=== PATIENT | male | born 1985 | race Caucasian/White ===

== ENCOUNTER 2020-07-29 14:00 | Inpatient (IN) | payer MEDICARE, OTHER ==
[~2020-07-29] VITALS: Ht 188 cm; Wt 81.4 kg
[~2020-07-29 14:00] MED LIST: BENZ2TAB10 PO; MULT-29 PO; OLAN5TAB40 PO
[2020-07-29 16:10] LABS: COVID AG,FIA SOURCE NASOPHARYNGEAL
[2020-07-29 18:07] VITALS: BP 106/61
[2020-07-29] MEDS ORDERED: OLANZapine 5 MG RAPDIS TABLET PO PRN (18:30)
[2020-07-29] MEDS: OLANZapine 10 MG TABLET PO SCH (20:52)
[2020-07-29] MEDS: ZOLPIDEM TARTRATE 10 MG TABLET PO PRN (21:02)
[2020-07-29] MEDS: LORazepam 2 MG TABLET PO PRN (21:03)
[2020-07-29 21:09] VITALS: BP 127/83
[2020-07-30 00:51] VITALS: BP 108/72
[2020-07-30] MEDS: LORazepam 2 MG TABLET PO PRN ×3 (07:13→20:47)
[2020-07-30] MEDS ORDERED: ONDANSETRON HCL 4 MG TABLET PO PRN (07:15)
[2020-07-30] MEDS ORDERED: PETROLATUM,WHITE 28 GM JELLY TP PRN (07:15)
[2020-07-30] MEDS ORDERED: ALBUTEROL SULFATE HFA 90 MCG/PUFF 8 GM INHALER IH PRN (07:15)
[2020-07-30] MEDS ORDERED: MAGNESIUM HYDROXIDE SUSPENSION 30 ML UDCUP PO PRN (07:15)
[2020-07-30] MEDS ORDERED: ACETAMINOPHEN 325 MG TABLET PO PRN (07:15)
[2020-07-30] MEDS ORDERED: NICOTINE 14 MG/24 HOUR PATCH TD PRN (07:15)
[2020-07-30] MEDS ORDERED: IBUPROFEN 400 MG TABLET PO PRN (07:15)
[2020-07-30] MEDS ORDERED: LOPERAMIDE HCL 2 MG CAPSULE PO PRN (07:15)
[2020-07-30] MEDS ORDERED: DOCUSATE SODIUM 100 MG CAPSULE PO PRN (07:15)
[2020-07-30] MEDS ORDERED: MAG HYDROX/AL HYDROX/SIMETH ES 30 ML SUSPENSION UDCUP PO PRN (07:15)
[2020-07-30] MEDS ORDERED: GuaiFENesin/D-METHORPHAN [SUGAR-FREE] 200-20MG/10 ML SYRUP UDCUP PO PRN (07:15)
[2020-07-30] MEDS ORDERED: CloNIDine HCL 0.1 MG TABLET PO PRN (07:15)
[2020-07-30 08:35] VITALS: BP 100/61
[2020-07-30] MEDS: OLANZapine 10 MG TABLET PO SCH ×3 (08:59→16:19)
[2020-07-30 16:22] VITALS: BP 102/62
[2020-07-30 20:42] VITALS: BP 103/74
[2020-07-31 02:34] VITALS: BP 98/79
[2020-07-31] MEDS: ZOLPIDEM TARTRATE 10 MG TABLET PO PRN (02:38)
[2020-07-31] MEDS: OLANZapine 10 MG TABLET PO SCH ×2 (08:49→16:02)
[2020-07-31] MEDS: LORazepam 2 MG TABLET PO PRN ×2 (09:37→16:02)
[2020-07-31 16:23] VITALS: BP 110/78
[2020-08-01 02:44] VITALS: BP 105/68
[2020-08-01] MEDS: LORazepam 2 MG TABLET PO PRN ×4 (03:23→19:22)
[2020-08-01] MEDS: BuPROPion HCL XL 150 MG ER TABLET PO SCH (08:09)
[2020-08-01] MEDS: OLANZapine 10 MG TABLET PO SCH ×2 (08:09→16:56)
[2020-08-01 08:36] VITALS: BP 95/80
[2020-08-01 16:11] VITALS: BP 102/60
[2020-08-01] MEDS: ZOLPIDEM TARTRATE 10 MG TABLET PO PRN (20:10)
[2020-08-02 00:14] VITALS: BP 100/62
[2020-08-02] MEDS: LORazepam 2 MG TABLET PO PRN ×3 (06:59→20:26)
[2020-08-02] MEDS: BuPROPion HCL XL 150 MG ER TABLET PO SCH (08:00)
[2020-08-02 08:31] VITALS: BP 98/59
[2020-08-02] MEDS: OLANZapine 10 MG TABLET PO SCH (08:51)
[2020-08-02 09:00] VITALS: BP 110/17
[2020-08-02 10:00] VITALS: BP 110/71
[2020-08-02 16:05] VITALS: BP 123/78
[2020-08-02] MEDS: ZOLPIDEM TARTRATE 10 MG TABLET PO PRN (20:26)
[2020-08-03 02:29] VITALS: BP 118/69
[2020-08-03] MEDS: LORazepam 2 MG TABLET PO PRN (08:16)
[2020-08-03] MEDS: BuPROPion HCL XL 150 MG ER TABLET PO SCH (08:16)
[2020-08-03] MEDS ORDERED: BUPR-93 PO (11:00)
== END 2020-08-03 13:30 | disposition home or self-care (01) | DRG 885 ==
LOC: EMS 14:09 → B3A 18:51
PROVIDERS: ADMIT Psychiatry & Neurology Psychiatry; ATTEND Psychiatry & Neurology Psychiatry
DX: F20.9 Schizophrenia, unspecified (principal); Z59.0 Homelessness; F15.90 Other stimulant use, unspecified, uncomplicated; F12.90 Cannabis use, unspecified, uncomplicated; F14.90 Cocaine use, unspecified, uncomplicated; F17.210 Nicotine dependence, cigarettes, uncomplicated; I10 Essential (primary) hypertension; K21.9 Gastro-esophageal reflux disease without esophagitis; F43.10 Post-traumatic stress disorder, unspecified; Z88.8 Allergy status to other drugs, medicaments and biological substances; F19.10 Other psychoactive substance abuse, uncomplicated; F90.9 Attention-deficit hyperactivity disorder, unspecified type; F32.9 Major depressive disorder, single episode, unspecified; Z20.822 Contact with and (suspected) exposure to COVID-19
CPT/HCPCS: 87426; 99285; Z7502; Z7610

== ENCOUNTER 2021-04-26 04:00 | Emergency (ER) | payer MEDICARE, OTHER ==
[~2021-04-26] VITALS: Ht 185.4 cm; Wt 75.0 kg
[~2021-04-26 04:00] MED LIST changes: -BENZ2TAB10 PO; +BUPR-93 PO; -MULT-29 PO; -OLAN5TAB40 PO
[2021-04-26 06:45] VITALS: BP 131/70
== END 2021-04-26 07:22 | disposition home or self-care (01) ==
LOC: EMS 04:01
DX: F32.9 Major depressive disorder, single episode, unspecified (principal); R45.851 Suicidal ideations; F20.9 Schizophrenia, unspecified; F15.90 Other stimulant use, unspecified, uncomplicated; F17.210 Nicotine dependence, cigarettes, uncomplicated; Z88.8 Allergy status to other drugs, medicaments and biological substances; Z79.899 Other long term (current) drug therapy
CPT/HCPCS: 99284

== ENCOUNTER 2021-05-22 21:40 | Inpatient (IN) | payer MEDICARE, OTHER ==
[~2021-05-22] VITALS: Ht 182.9 cm; Wt 79.0 kg
[2021-05-22 22:21] LABS: BASOPHILS % (AUTO) 0.5 % (0.0-2.0); EOSINOPHILS % (AUTO) 3.5 % (1.0-6.0); HEMATOCRIT 41.7 % (41-53); HEMOGLOBIN 14.1 g/dL (13.5-17.5); LYMPHOCYTES # (AUTO) 1.7 K/uL (1.0-4.8); LYMPHOCYTES % (AUTO) 29.5 % (22.0-44.0); MEAN CORPUSCULAR HEMOGLOBIN 28.6 pg (26.0-34.0); MEAN CORPUSCULAR HGB CONC 33.9 G/dL (31.0-37.0); MEAN CORPUSCULAR VOLUME 84 fL (80-100); MONOCYTES # (AUTO) 0.5 K/uL (0.1-1.0); NEUTROPHILS # (AUTO) 3.3 K/uL (1.8-7.7); NEUTROPHILS % (AUTO) 57.5 % (40.0-70.0); PLATELET COUNT (AUTO) 232 K/uL (150-450); RED BLOOD CELL COUNT(AUTO) 4.95 MIL/uL (4.50-5.90); RED CELL DISTRIBUTION WIDTH 13.6 % (11.5-14.5)
[2021-05-22 22:25] LABS: ANION GAP 4 mmol/L (8-16); CALCIUM, TOTAL 8.8 mg/dL (8.8-10.5); CARBON DIOXIDE 31 mmol/L (22-29); CHLORIDE 105 mmol/L (98-107); CREATININE 0.88 mg/dL (0.60-1.30); GLOMERULAR FILTR. RATE CALC > 60 mL/min (>60); GLUCOSE,RANDOM 103 mg/dL (70-110); SODIUM SERUM 140 mmol/L (136-145); UREA NITROGEN, BLOOD 18 mg/dL (7-18)
[2021-05-22 22:31] LABS: ALANINE AMINOTRANSFERASE 22 U/L (12-78); ALBUMIN 3.6 g/dL (3.4-5.0); ALKALINE PHOSPHATASE 87 U/L (46-116); ASPARTATE AMINOTRANSFERASE 17 U/L (15-37); BILIRUBIN,TOTAL 0.3 mg/dL (0.1-1.0); TOTAL PROTEIN, SERUM 6.7 g/dL (6.4-8.2)
[2021-05-22 22:37] LABS: COVID AG,FIA SOURCE NASAL SWAB
[2021-05-22] MEDS ORDERED: ZOLPIDEM TARTRATE 10 MG TABLET PO PRN (23:45)
[2021-05-23 00:16] LABS: APPEARANCE,URINE CLEAR (CLEAR); BILIRUBIN,URINE NEGATIVE (NEGATIVE); GLUCOSE, URINE (UA) NEGATIVE (NEGATIVE); KETONES,URINE NEGATIVE (NEGATIVE); LEUKOCYTE ESTERASE ,URINE NEGATIVE (NEGATIVE); NITRATE,URINE NEGATIVE (NEGATIVE); OCCULT BLOOD,URINE NEGATIVE (NEGATIVE); PROTEIN,URINE NEGATIVE (NEGATIVE); UROBILINOGEN,URINE <=1.0 mg/dL (<=1.0)
[2021-05-23 00:22] LABS: AMPHET/METH SCREEN,URINE NEGATIVE (NEGATIVE); BARBITURATE SCREEN, URINE NEGATIVE (NEGATIVE); BENZODIAZEPINES SCREEN,URINE NEGATIVE (NEGATIVE); CANNABINOID SCREEN,URINE NEGATIVE (NEGATIVE); COCAINE SCREEN,URINE NEGATIVE (NEGATIVE); METHADONE SCREEN, URINE NEGATIVE (NEGATIVE); OPIATE SCREEN,URINE NEGATIVE (NEGATIVE); PHENCYCLIDINE SCREEN,URINE NEGATIVE (NEGATIVE)
[2021-05-23] MEDS ORDERED: LORazepam 2 MG TABLET PO ONE (00:30)
[2021-05-23 02:00] VITALS: BP 124/79
[2021-05-23] MEDS ORDERED: INFLUENZA VIRUS VACCINE QVS 2021-22 (6MO+)/PF 60 MCG/0.5 ML SYRINGE IM. ONE (05:00)
[2021-05-23 08:57] VITALS: BP 130/85
[2021-05-23] MEDS ORDERED: LOPERAMIDE HCL 2 MG CAPSULE PO PRN (10:00)
[2021-05-23] MEDS ORDERED: ACETAMINOPHEN 325 MG TABLET PO PRN (10:00)
[2021-05-23] MEDS ORDERED: GuaiFENesin/D-METHORPHAN [SUGAR-FREE] 200-20MG/10 ML SYRUP UDCUP PO PRN (10:00)
[2021-05-23] MEDS ORDERED: TUBERCULIN, PURIFIED PROTEIN DERIVATIVE 5 TU/0.1 ML SYRINGE ID ONE (10:00)
[2021-05-23] MEDS ORDERED: LURASIDONE HCL 40 MG TABLET PO PRN (10:00)
[2021-05-23] MEDS ORDERED: HydrOXYzine PAMOATE 50 MG CAPSULE PO PRN (10:00)
[2021-05-23] MEDS ORDERED: PROMETHAZINE HCL 25 MG TABLET PO PRN (10:00)
[2021-05-23] MEDS ORDERED: LURASIDONE HCL 40 MG TABLET PO ONE (10:00)
[2021-05-23] MEDS ORDERED: MAGNESIUM HYDROXIDE SUSPENSION 30 ML UDCUP PO PRN (10:00)
[2021-05-23] MEDS ORDERED: MAG HYDROX/AL HYDROX/SIMETH ES 30 ML SUSPENSION UDCUP PO PRN (10:00)
[2021-05-23] MEDS: LORazepam 2 MG TABLET PO PRN ×2 (10:35→17:39)
[2021-05-23] MEDS: THIAMINE 100 MG TABLET PO SCH (16:15)
[2021-05-23 16:25] VITALS: BP 113/67
[2021-05-23] MEDS: FluvoxaMINE MALEATE 50 MG TABLET PO SCH (20:07)
[2021-05-23] MEDS: MELATONIN 5 MG TABLET PO SCH (20:07)
[2021-05-24] MEDS ORDERED: LURASIDONE HCL 40 MG TABLET PO SCH (07:30)
[2021-05-24 08:00] VITALS: BP 110/76
[2021-05-24] MEDS: THIAMINE 100 MG TABLET PO SCH ×2 (08:30→17:38)
[2021-05-24] MEDS: FOLIC ACID 1 MG TABLET PO SCH (08:30)
[2021-05-24] MEDS: MULTIVITAMINS WITH MINERALS, THERAPEUTIC TABLET PO SCH (08:30)
[2021-05-24] MEDS: OMEGA-3/DHA/EPA/FISH OIL 1,000 MG CAPSULE PO SCH (08:30)
[2021-05-24] MEDS: BuPROPion HCL XL 150 MG ER TABLET PO SCH (08:30)
[2021-05-24] MEDS: NALTREXONE HCL 50 MG TABLET PO SCH (08:30)
[2021-05-24] MEDS: DIAZEPAM 5 MG TABLET PO PRN (14:38)
[2021-05-24 16:00] VITALS: BP 100/75
[2021-05-24] MEDS: FluvoxaMINE MALEATE 50 MG TABLET PO SCH (21:00)
[2021-05-24] MEDS: MELATONIN 5 MG TABLET PO SCH (21:14)
[2021-05-25 02:15] VITALS: BP 125/78
[2021-05-25] MEDS ORDERED: LURASIDONE HCL 60 MG TABLET PO SCH (07:30)
[2021-05-25 08:02] VITALS: BP 130/96
[2021-05-25] MEDS: MULTIVITAMINS WITH MINERALS, THERAPEUTIC TABLET PO SCH (08:30)
[2021-05-25] MEDS: FOLIC ACID 1 MG TABLET PO SCH (08:30)
[2021-05-25] MEDS: THIAMINE 100 MG TABLET PO SCH (08:30)
[2021-05-25] MEDS: BuPROPion HCL XL 150 MG ER TABLET PO SCH (08:30)
[2021-05-25] MEDS: NALTREXONE HCL 50 MG TABLET PO SCH (08:32)
[2021-05-25] MEDS ORDERED: ALBUTEROL SULFATE HFA 90 MCG/PUFF 8 GM INHALER IH PRN (09:00)
[2021-05-25] MEDS: OMEGA-3/DHA/EPA/FISH OIL 1,000 MG CAPSULE PO SCH (09:05)
[2021-05-25] MEDS: DIAZEPAM 5 MG TABLET PO PRN (09:37)
[2021-05-25] MEDS ORDERED: FLUV50 PO (13:55)
[2021-05-25] MEDS ORDERED: NALT50TA PO (13:55)
[2021-05-25] MEDS ORDERED: LURA60TA PO (13:55)
[2021-05-25] MEDS ORDERED: BUPR-49 PO (13:55)
[2021-05-25] MEDS ORDERED: MELA5TAB40 PO (13:55)
[2021-05-25] MEDS ORDERED: OMEG-108 PO (13:55)
[2021-05-25 16:21] VITALS: BP 121/64
== END 2021-05-25 17:45 | disposition home or self-care (01) | DRG 885 ==
LOC: EMS 21:46 → 3EI 05-23 01:02
PROVIDERS: ADMIT Psychiatry & Neurology Psychiatry; ATTEND Psychiatry & Neurology Psychiatry
DX: F25.1 Schizoaffective disorder, depressive type (principal); R45.851 Suicidal ideations; F43.10 Post-traumatic stress disorder, unspecified; Z20.822 Contact with and (suspected) exposure to COVID-19; I10 Essential (primary) hypertension; F17.210 Nicotine dependence, cigarettes, uncomplicated; J44.9 Chronic obstructive pulmonary disease, unspecified; Z55.9 Problems related to education and literacy, unspecified; Z59.9 Problem related to housing and economic circumstances, unspecified; Z63.9 Problem related to primary support group, unspecified; Z65.3 Problems related to other legal circumstances; Z91.14 Patient's other noncompliance with medication regimen
CPT/HCPCS: 80053; 81003; 85025; 99285; G0480; Q9967

== ENCOUNTER 2021-07-14 04:16 | Emergency (ER) | payer MEDICARE, OTHER ==
[~2021-07-14] VITALS: Ht 188 cm; Wt 79.0 kg
[~2021-07-14 04:16] MED LIST changes: +BUPR-49 PO; -BUPR-93 PO; +FLUV50 PO; +LURA60TA PO; +MELA5TAB40 PO; +NALT50TA PO; +OMEG-108 PO
[2021-07-14 04:38] VITALS: BP 132/82
== END 2021-07-14 05:35 | disposition home or self-care (01) ==
LOC: EMS 04:19
DX: F20.0 Paranoid schizophrenia (principal); R45.851 Suicidal ideations; F32.9 Major depressive disorder, single episode, unspecified; F17.210 Nicotine dependence, cigarettes, uncomplicated; F19.90 Other psychoactive substance use, unspecified, uncomplicated; Z88.8 Allergy status to other drugs, medicaments and biological substances
CPT/HCPCS: 99284

== ENCOUNTER 2021-07-23 07:45 | Inpatient (IN) | payer MEDICARE, OTHER ==
[~2021-07-23] VITALS: Ht 198.1 cm; Wt 78.2 kg
[2021-07-23] MEDS ORDERED: ZOLPIDEM TARTRATE 10 MG TABLET PO PRN (09:30)
[2021-07-23 09:41] LABS: APPEARANCE,URINE CLEAR (CLEAR); BILIRUBIN,URINE NEGATIVE (NEGATIVE); GLUCOSE, URINE (UA) NEGATIVE (NEGATIVE); KETONES,URINE NEGATIVE (NEGATIVE); LEUKOCYTE ESTERASE ,URINE NEGATIVE (NEGATIVE); NITRATE,URINE NEGATIVE (NEGATIVE); OCCULT BLOOD,URINE NEGATIVE (NEGATIVE); PH,URINE 6.5 (5.0-8.0); PROTEIN,URINE NEGATIVE (NEGATIVE); SPECIFIC GRAVITIY, URINE 1.008 (1.003-1.030); UROBILINOGEN,URINE <=1.0 mg/dL (<=1.0)
[2021-07-23] MEDS ORDERED: IBUPROFEN 600 MG TABLET PO ONE (13:15)
[2021-07-23 17:09] LABS: COVID AG,FIA SOURCE NASAL SWAB
[2021-07-23] MEDS: LORazepam 2 MG TABLET PO PRN (19:04)
[2021-07-23 20:08] VITALS: BP 127/76
[2021-07-24 06:16] VITALS: BP 106/63
[2021-07-24] MEDS ORDERED: PNEUMOCOCCAL VACCINE POLYVALENT 0.5 ML VIAL [PPSV23] IM. ONE (07:00)
[2021-07-24] MEDS: LORazepam 2 MG TABLET PO PRN (08:32)
[2021-07-24 08:47] VITALS: BP 120/64
[2021-07-24] MEDS ORDERED: CloNIDine HCL 0.1 MG TABLET PO PRN (12:30)
[2021-07-24] MEDS ORDERED: PETROLATUM,WHITE 28 GM JELLY TP PRN (12:30)
[2021-07-24] MEDS ORDERED: MAG HYDROX/AL HYDROX/SIMETH ES 30 ML SUSPENSION UDCUP PO PRN (12:30)
[2021-07-24] MEDS ORDERED: GuaiFENesin/D-METHORPHAN [SUGAR-FREE] 200-20MG/10 ML SYRUP UDCUP PO PRN (12:30)
[2021-07-24] MEDS ORDERED: LOPERAMIDE HCL 2 MG CAPSULE PO PRN (12:30)
[2021-07-24] MEDS ORDERED: ACETAMINOPHEN 325 MG TABLET PO PRN (12:30)
[2021-07-24] MEDS ORDERED: ONDANSETRON HCL 4 MG TABLET PO PRN (12:30)
[2021-07-24] MEDS ORDERED: NICOTINE 14 MG/24 HOUR PATCH TD PRN (12:30)
[2021-07-24] MEDS ORDERED: ALBUTEROL SULFATE HFA 90 MCG/PUFF 8 GM INHALER IH PRN (12:30)
[2021-07-24] MEDS ORDERED: MAGNESIUM HYDROXIDE SUSPENSION 30 ML UDCUP PO PRN (12:30)
[2021-07-24] MEDS ORDERED: IBUPROFEN 400 MG TABLET PO PRN (12:30)
[2021-07-24] MEDS ORDERED: DOCUSATE SODIUM 100 MG CAPSULE PO PRN (12:30)
[2021-07-24] MEDS: BuPROPion HCL 150 MG SR TABLET PO SCH (15:26)
[2021-07-24] MEDS: FluvoxaMINE MALEATE 50 MG TABLET PO SCH (15:44)
[2021-07-24 16:37] VITALS: BP 104/67
[2021-07-24] MEDS: MELATONIN 5 MG TABLET PO SCH (20:29)
[2021-07-25 01:34] VITALS: BP 105/65
[2021-07-25] MEDS: LORazepam 2 MG TABLET PO PRN ×2 (02:54→19:28)
[2021-07-25 09:08] VITALS: BP 106/66
[2021-07-25] MEDS: FluvoxaMINE MALEATE 50 MG TABLET PO SCH (09:24)
[2021-07-25] MEDS: OMEGA-3/DHA/EPA/FISH OIL 1,000 MG CAPSULE PO SCH (09:24)
[2021-07-25] MEDS: BuPROPion HCL 150 MG SR TABLET PO SCH (09:24)
[2021-07-25 18:10] VITALS: BP 109/65
[2021-07-25] MEDS: MELATONIN 5 MG TABLET PO SCH (20:27)
[2021-07-26 00:52] VITALS: BP_SYST 102; BP_SYST 71; BP_DIAS 17
[2021-07-26 08:26] VITALS: BP 111/68
[2021-07-26] MEDS: FluvoxaMINE MALEATE 50 MG TABLET PO SCH (09:37)
[2021-07-26] MEDS: BuPROPion HCL 150 MG SR TABLET PO SCH (09:37)
[2021-07-26] MEDS: OMEGA-3/DHA/EPA/FISH OIL 1,000 MG CAPSULE PO SCH (09:37)
[2021-07-26] MEDS ORDERED: FLUV50 PO (12:47)
[2021-07-26] MEDS ORDERED: MELA5TAB40 PO (12:47)
[2021-07-26] MEDS ORDERED: BUPR-290 PO (12:47)
== END 2021-07-26 14:35 | disposition home or self-care (01) | DRG 885 ==
LOC: EMS 07:45 → B2S 18:59
PROVIDERS: ADMIT Psychiatry & Neurology Child & Adolescent Psychiatry; ATTEND Psychiatry & Neurology Child & Adolescent Psychiatry
PROC: 3E0234Z Introduction of Serum, Toxoid and Vaccine into Muscle, Percutaneous Approach (ICD-10-PCS; principal; 2021-07-24)
DX: F25.1 Schizoaffective disorder, depressive type (principal); R45.851 Suicidal ideations; F32.A Depression, unspecified; F43.10 Post-traumatic stress disorder, unspecified; I10 Essential (primary) hypertension; J44.9 Chronic obstructive pulmonary disease, unspecified; Z20.822 Contact with and (suspected) exposure to COVID-19; K21.9 Gastro-esophageal reflux disease without esophagitis; E78.5 Hyperlipidemia, unspecified; F17.210 Nicotine dependence, cigarettes, uncomplicated; F41.9 Anxiety disorder, unspecified; F15.10 Other stimulant abuse, uncomplicated; F19.10 Other psychoactive substance abuse, uncomplicated; F10.10 Alcohol abuse, uncomplicated; Y90.9 Presence of alcohol in blood, level not specified; Z23 Encounter for immunization; Z88.8 Allergy status to other drugs, medicaments and biological substances; Z71.51 Drug abuse counseling and surveillance of drug abuser
CPT/HCPCS: 81003; 90732; 99285; Q9967

== ENCOUNTER 2021-07-28 13:44 | Emergency (ER) | payer MEDICARE, OTHER ==
[~2021-07-28] VITALS: Ht 185.4 cm; Wt 63.6 kg
[~2021-07-28 13:44] MED LIST changes: +BUPR-290 PO; -LURA60TA PO; -NALT50TA PO
[2021-07-28] MEDS ORDERED: IBUPROFEN 600 MG TABLET PO ONE (15:15)
[2021-07-28] MEDS ORDERED: ACETAMINOPHEN 500 MG TABLET PO ONE (15:15)
[2021-07-28 15:50] LABS: AMPHET/METH SCREEN,URINE NEGATIVE (NEGATIVE); BARBITURATE SCREEN, URINE NEGATIVE (NEGATIVE); BENZODIAZEPINES SCREEN,URINE NEGATIVE (NEGATIVE); CANNABINOID SCREEN,URINE NEGATIVE (NEGATIVE); COCAINE SCREEN,URINE NEGATIVE (NEGATIVE); METHADONE SCREEN, URINE NEGATIVE (NEGATIVE); OPIATE SCREEN,URINE NEGATIVE (NEGATIVE); PHENCYCLIDINE SCREEN,URINE NEGATIVE (NEGATIVE)
[2021-07-28] MEDS: BuPROPion HCL XL 150 MG ER TABLET PO ONE ×2 (15:54→16:25)
[2021-07-28] MEDS: FluvoxaMINE MALEATE 50 MG TABLET PO ONE ×2 (15:54→16:24)
[2021-07-28 17:00] VITALS: BP 121/72
== END 2021-07-28 17:25 | disposition home or self-care (01) ==
LOC: EMS 13:44
DX: F25.1 Schizoaffective disorder, depressive type (principal); R45.851 Suicidal ideations; K14.0 Glossitis; F41.9 Anxiety disorder, unspecified; F32.A Depression, unspecified; F17.210 Nicotine dependence, cigarettes, uncomplicated; F15.90 Other stimulant use, unspecified, uncomplicated; Z86.59 Personal history of other mental and behavioral disorders; Z88.8 Allergy status to other drugs, medicaments and biological substances
CPT/HCPCS: 99284

== ENCOUNTER 2021-07-29 21:08 | Inpatient (IN) | payer MEDICARE, OTHER ==
[~2021-07-29] VITALS: Ht 185.4 cm; Wt 76.2 kg
[~2021-07-29 21:08] MED LIST changes: -BUPR-49 PO
[2021-07-29 22:45] LABS: COVID AG,FIA SOURCE NASAL SWAB
[2021-07-29] MEDS ORDERED: ZOLPIDEM TARTRATE 10 MG TABLET PO PRN (22:45)
[2021-07-30 11:55] LABS: APPEARANCE,URINE CLEAR (CLEAR); BILIRUBIN,URINE NEGATIVE (NEGATIVE); GLUCOSE, URINE (UA) NEGATIVE (NEGATIVE); KETONES,URINE NEGATIVE (NEGATIVE); LEUKOCYTE ESTERASE ,URINE NEGATIVE (NEGATIVE); NITRATE,URINE NEGATIVE (NEGATIVE); OCCULT BLOOD,URINE NEGATIVE (NEGATIVE); PH,URINE 5.5 (5.0-8.0); PROTEIN,URINE TRACE mg/dL (NEGATIVE); SPECIFIC GRAVITIY, URINE 1.026 (1.003-1.030); UROBILINOGEN,URINE <=1.0 mg/dL (<=1.0)
[2021-07-30 12:01] LABS: AMPHET/METH SCREEN,URINE NEGATIVE (NEGATIVE); BARBITURATE SCREEN, URINE NEGATIVE (NEGATIVE); BENZODIAZEPINES SCREEN,URINE NEGATIVE (NEGATIVE); CANNABINOID SCREEN,URINE NEGATIVE (NEGATIVE); COCAINE SCREEN,URINE NEGATIVE (NEGATIVE); METHADONE SCREEN, URINE NEGATIVE (NEGATIVE); OPIATE SCREEN,URINE NEGATIVE (NEGATIVE)
[2021-07-30 12:05] LABS: BACTERIA,URINE None Seen /HPF (None Seen); PHENCYCLIDINE SCREEN,URINE NEGATIVE (NEGATIVE); RBC,URINE None Seen /HPF (0-2); SQUAMOUS EPITHELIAL CELL,UR Few /LPF (None Seen); WBC,URINE None Seen /HPF (0-5)
[2021-07-31 02:18] VITALS: BP 110/75
[2021-07-31 02:32] VITALS: BP 110/75
[2021-07-31] MEDS ORDERED: MELATONIN 5 MG TABLET PO PRN (07:00)
[2021-07-31] MEDS: LORazepam 2 MG TABLET PO PRN (08:51)
[2021-07-31] MEDS ORDERED: OMEGA-3/DHA/EPA/FISH OIL 1,000 MG CAPSULE PO SCH (09:00)
[2021-07-31 09:45] VITALS: BP 91/59
[2021-07-31] MEDS: ARIPiprazole 5 MG TABLET PO SCH ×2 (10:00→11:55)
[2021-07-31] MEDS: BuPROPion HCL 150 MG SR TABLET PO SCH (11:56)
[2021-07-31] MEDS: FluvoxaMINE MALEATE 50 MG TABLET PO SCH (11:56)
[2021-07-31] MEDS ORDERED: CloNIDine HCL 0.1 MG TABLET PO PRN (15:15)
[2021-07-31] MEDS ORDERED: ONDANSETRON HCL 4 MG TABLET PO PRN (15:15)
[2021-07-31] MEDS ORDERED: GuaiFENesin/D-METHORPHAN [SUGAR-FREE] 200-20MG/10 ML SYRUP UDCUP PO PRN (15:15)
[2021-07-31] MEDS ORDERED: PETROLATUM,WHITE 28 GM JELLY TP PRN (15:15)
[2021-07-31] MEDS ORDERED: ALBUTEROL SULFATE HFA 90 MCG/PUFF 8 GM INHALER IH PRN (15:15)
[2021-07-31] MEDS ORDERED: DOCUSATE SODIUM 100 MG CAPSULE PO PRN (15:15)
[2021-07-31] MEDS ORDERED: MAG HYDROX/AL HYDROX/SIMETH ES 30 ML SUSPENSION UDCUP PO PRN (15:15)
[2021-07-31] MEDS ORDERED: LOPERAMIDE HCL 2 MG CAPSULE PO PRN (15:15)
[2021-07-31] MEDS ORDERED: NICOTINE 14 MG/24 HOUR PATCH TD PRN (15:15)
[2021-07-31] MEDS ORDERED: MAGNESIUM HYDROXIDE SUSPENSION 30 ML UDCUP PO PRN (15:15)
[2021-07-31] MEDS ORDERED: IBUPROFEN 400 MG TABLET PO PRN (15:15)
[2021-07-31] MEDS ORDERED: ACETAMINOPHEN 325 MG TABLET PO PRN (15:15)
[2021-07-31 16:42] VITALS: BP 115/76
[2021-07-31] MEDS ORDERED: MELATONIN 5 MG TABLET PO SCH (21:00)
[2021-08-01 01:25] VITALS: BP 110/75
[2021-08-01] MEDS: LORazepam 2 MG TABLET PO PRN (01:27)
[2021-08-01] MEDS ORDERED: OMEGA-3/DHA/EPA/FISH OIL 1,000 MG CAPSULE PO SCH (09:00)
[2021-08-01] MEDS: ARIPiprazole 5 MG TABLET PO SCH (09:00)
[2021-08-01] MEDS: BuPROPion HCL 150 MG SR TABLET PO SCH (09:03)
[2021-08-01] MEDS: FluvoxaMINE MALEATE 50 MG TABLET PO SCH (09:04)
[2021-08-01 09:29] VITALS: BP 96/59
[2021-08-01] MEDS ORDERED: MELA5TAB40 PO (11:40)
[2021-08-01] MEDS ORDERED: ARIP5TAB37 PO (11:40)
[2021-08-01] MEDS ORDERED: BUPR-290 PO (11:40)
[2021-08-01] MEDS ORDERED: FLUV50 PO (11:40)
== END 2021-08-01 12:15 | disposition home or self-care (01) | DRG 885 ==
LOC: EMS 21:08 → 3EI 07-31 00:22 → EMS 07-31 01:32
PROVIDERS: ADMIT Psychiatry & Neurology Psychiatry; ATTEND Psychiatry & Neurology Child & Adolescent Psychiatry
DX: F25.1 Schizoaffective disorder, depressive type (principal); G47.00 Insomnia, unspecified; I10 Essential (primary) hypertension; J44.9 Chronic obstructive pulmonary disease, unspecified; K21.9 Gastro-esophageal reflux disease without esophagitis; F17.210 Nicotine dependence, cigarettes, uncomplicated; F32.A Depression, unspecified; F41.9 Anxiety disorder, unspecified; F99 Mental disorder, not otherwise specified; Z20.822 Contact with and (suspected) exposure to COVID-19; Z91.19 Patient's noncompliance with other medical treatment and regimen
CPT/HCPCS: 81001; 87081; 99285; Q9967

== ENCOUNTER 2021-11-26 02:54 | Emergency (ER) | payer OTHER ==
[~2021-11-26] VITALS: Ht 185.4 cm; Wt 76.0 kg
[~2021-11-26 02:54] MED LIST changes: +ARIP5TAB37 PO; -BUPR-290 PO; +BUPR-72 PO; -OMEG-108 PO
[2021-11-26] MEDS ORDERED: LORazepam 2 MG TABLET PO ONE (06:15)
[2021-11-26 06:18] VITALS: BP 116/76
[2021-11-26 06:26] LABS: COVID AG,FIA SOURCE NASAL SWAB
== END 2021-11-26 06:53 | disposition home or self-care (01) ==
LOC: EMS 02:55
DX: F20.9 Schizophrenia, unspecified (principal); F41.9 Anxiety disorder, unspecified; F32.A Depression, unspecified; F17.210 Nicotine dependence, cigarettes, uncomplicated; Z86.59 Personal history of other mental and behavioral disorders; Z88.8 Allergy status to other drugs, medicaments and biological substances; Z20.822 Contact with and (suspected) exposure to COVID-19
CPT/HCPCS: 99284

== ENCOUNTER 2022-04-07 07:36 | Emergency (ER) | payer MEDICARE ==
[~2022-04-07] VITALS: Ht 185.4 cm; Wt 77.0 kg
[2022-04-07 07:37] VITALS: BP 125/80
[2022-04-07] MEDS ORDERED: METH-624 PO (08:44)
[2022-04-07] MEDS ORDERED: FLUV50 PO (08:44)
== END 2022-04-07 09:40 | disposition home or self-care (01) ==
LOC: EMS 07:43
DX: F41.9 Anxiety disorder, unspecified (principal); F32.A Depression, unspecified; F20.9 Schizophrenia, unspecified; F17.210 Nicotine dependence, cigarettes, uncomplicated; F12.90 Cannabis use, unspecified, uncomplicated; F15.90 Other stimulant use, unspecified, uncomplicated; Z88.8 Allergy status to other drugs, medicaments and biological substances
CPT/HCPCS: 99283; Z7502

== ENCOUNTER 2022-04-22 10:16 | Emergency (ER) | payer MEDICARE ==
[~2022-04-22] VITALS: Ht 180.3 cm; Wt 78.2 kg
[~2022-04-22 10:16] MED LIST changes: -ARIP5TAB37 PO; -BUPR-72 PO; -FLUV50 PO; -MELA5TAB40 PO; +RISP1TAB48 PO; +RISP1TAB98 PO
[2022-04-22 10:52] VITALS: BP 159/99
[2022-04-22 11:15] LABS: COVID AG,FIA SOURCE NASOPHARYNGEAL
== END 2022-04-22 12:13 | disposition home or self-care (01) ==
LOC: EMS 10:22
DX: F15.90 Other stimulant use, unspecified, uncomplicated (principal); F41.9 Anxiety disorder, unspecified; F32.A Depression, unspecified; F20.9 Schizophrenia, unspecified; F17.210 Nicotine dependence, cigarettes, uncomplicated; Z20.822 Contact with and (suspected) exposure to COVID-19; Z88.8 Allergy status to other drugs, medicaments and biological substances
CPT/HCPCS: 99283

== ENCOUNTER 2022-05-14 05:59 | Inpatient (IN) | payer MEDICARE ==
[~2022-05-14] VITALS: Ht 180.3 cm; Wt 78.2 kg
[2022-05-14 06:57] LABS: COVID AG,FIA SOURCE NASAL SWAB
[2022-05-14 07:15] LABS: AMPHET/METH SCREEN,URINE POSITIVE (NEGATIVE); BARBITURATE SCREEN, URINE NEGATIVE (NEGATIVE); BENZODIAZEPINES SCREEN,URINE NEGATIVE (NEGATIVE); CANNABINOID SCREEN,URINE NEGATIVE (NEGATIVE); COCAINE SCREEN,URINE POSITIVE (NEGATIVE); METHADONE SCREEN, URINE NEGATIVE (NEGATIVE); OPIATE SCREEN,URINE NEGATIVE (NEGATIVE); PHENCYCLIDINE SCREEN,URINE NEGATIVE (NEGATIVE)
[2022-05-14] MEDS ORDERED: QUEtiapine FUMARATE 100 MG TABLET PO PRN (09:00)
[2022-05-14] MEDS ORDERED: ZOLPIDEM TARTRATE 10 MG TABLET PO PRN (09:00)
[2022-05-14] MEDS ORDERED: OMEPRAZOLE 20 MG CAPSULE PO PRN (16:30)
[2022-05-14] MEDS ORDERED: PETROLATUM,WHITE 28 GM JELLY TP PRN (16:30)
[2022-05-14] MEDS ORDERED: DOCUSATE SODIUM 100 MG CAPSULE PO PRN (16:30)
[2022-05-14] MEDS ORDERED: ACETAMINOPHEN 325 MG TABLET PO PRN (16:30)
[2022-05-14] MEDS ORDERED: ONDANSETRON HCL 4 MG TABLET PO PRN (16:30)
[2022-05-14] MEDS ORDERED: BENZOCAINE/MENTHOL LOZENGE PO PRN (16:30)
[2022-05-14] MEDS ORDERED: LOPERAMIDE HCL 2 MG CAPSULE PO PRN (16:30)
[2022-05-14] MEDS ORDERED: ALBUTEROL SULFATE HFA 90 MCG/PUFF 8 GM INHALER IH PRN (16:30)
[2022-05-14] MEDS ORDERED: BACITRACIN 28 GM OINTMENT TP PRN (16:30)
[2022-05-14] MEDS ORDERED: MAGNESIUM HYDROXIDE SUSPENSION 30 ML UDCUP PO PRN (16:30)
[2022-05-14] MEDS ORDERED: CloNIDine HCL 0.1 MG TABLET PO PRN (16:30)
[2022-05-14] MEDS ORDERED: IBUPROFEN 600 MG TABLET PO PRN (16:30)
[2022-05-14] MEDS ORDERED: MAG HYDROX/AL HYDROX/SIMETH ES 30 ML SUSPENSION UDCUP PO PRN (16:30)
[2022-05-14] MEDS ORDERED: MIDAZOLAM HCL 5 MG/ML VIAL ONE (16:52)
[2022-05-14] MEDS ORDERED: MIDAZOLAM HCL 5 MG/ML VIAL IM ONE (17:00)
[2022-05-14 20:30] VITALS: BP 114/67
[2022-05-14] MEDS ORDERED: INFLUENZA VIRUS VACCINE QVS 2022-23 (6MO+)/PF 60 MCG/0.5 ML SYRINGE IM. ONE (21:45)
[2022-05-15 08:30] VITALS: BP 124/71
[2022-05-15] MEDS: LORazepam 2 MG TABLET PO PRN (10:52)
[2022-05-15] MEDS: MULTIVITAMINS WITH MINERALS, THERAPEUTIC TABLET PO SCH (10:52)
[2022-05-15] MEDS ORDERED: HALOPERIDOL LACTATE 5 MG/ML VIAL ONE (11:09)
[2022-05-15] MEDS ORDERED: LORazepam 2 MG/ML VIAL ONE (11:09)
[2022-05-15] MEDS ORDERED: DiphenhydrAMINE HCL 50 MG/ML VIAL ONE (11:09)
[2022-05-15] MEDS ORDERED: HALOPERIDOL LACTATE 5 MG/ML VIAL IM ONE ×2 (11:15)
[2022-05-15] MEDS ORDERED: LORazepam 2 MG/ML VIAL IM ONE (11:15)
[2022-05-15] MEDS ORDERED: DiphenhydrAMINE HCL 50 MG/ML VIAL IM ONE (11:15)
[2022-05-15 21:13] VITALS: BP 101/67
[2022-05-16] MEDS: MULTIVITAMINS WITH MINERALS, THERAPEUTIC TABLET PO SCH (09:32)
[2022-05-16] MEDS: LORazepam 2 MG TABLET PO PRN ×2 (09:32→16:32)
[2022-05-16 09:46] VITALS: BP 112/68
[2022-05-16] MEDS: RisperiDONE 1 MG TABLET PO SCH (21:00)
[2022-05-17] MEDS: RisperiDONE 1 MG TABLET PO SCH ×3 (09:00→20:57)
[2022-05-17] MEDS: MULTIVITAMINS WITH MINERALS, THERAPEUTIC TABLET PO SCH (09:05)
[2022-05-17] MEDS: LORazepam 2 MG TABLET PO PRN ×2 (09:06→14:51)
[2022-05-17 09:11] VITALS: BP 124/84
[2022-05-17 20:47] VITALS: BP 148/71
[2022-05-18] MEDS: LORazepam 2 MG TABLET PO PRN ×2 (08:20→20:40)
[2022-05-18] MEDS: MULTIVITAMINS WITH MINERALS, THERAPEUTIC TABLET PO SCH (08:20)
[2022-05-18] MEDS: RisperiDONE 1 MG TABLET PO SCH ×2 (08:24→20:46)
[2022-05-18 08:32] VITALS: BP 122/86
[2022-05-18] MEDS ORDERED: RISP1TAB98 PO (19:17)
[2022-05-18 20:24] VITALS: BP 110/71
[2022-05-19] MEDS: MULTIVITAMINS WITH MINERALS, THERAPEUTIC TABLET PO SCH (08:38)
[2022-05-19] MEDS: RisperiDONE 1 MG TABLET PO SCH (08:39)
[2022-05-19 08:54] VITALS: BP 148/80
== END 2022-05-19 13:16 | disposition home or self-care (01) | DRG 885 ==
LOC: EMS 06:02 → UNDOADMIN 15:17 → B3A 15:17 → B2X 15:17 → B3A 21:13 → B2S 05-15 18:54
PROVIDERS: ADMIT Psychiatry & Neurology Psychiatry; ATTEND Psychiatry & Neurology Psychiatry
DX: F25.9 Schizoaffective disorder, unspecified (principal); R45.851 Suicidal ideations; F43.10 Post-traumatic stress disorder, unspecified; G47.00 Insomnia, unspecified; I10 Essential (primary) hypertension; F12.90 Cannabis use, unspecified, uncomplicated; J44.9 Chronic obstructive pulmonary disease, unspecified; K21.9 Gastro-esophageal reflux disease without esophagitis; F15.10 Other stimulant abuse, uncomplicated; F10.10 Alcohol abuse, uncomplicated; K59.00 Constipation, unspecified; Z20.822 Contact with and (suspected) exposure to COVID-19; Z87.891 Personal history of nicotine dependence; Z91.51 Personal history of suicidal behavior; Z79.899 Other long term (current) drug therapy; Z88.8 Allergy status to other drugs, medicaments and biological substances
CPT/HCPCS: 80307; 99291; J1200; J1630; J2060; J2250

== ENCOUNTER 2022-08-07 16:17 | Emergency (ER) | payer MEDICARE ==
[~2022-08-07] VITALS: Ht 182.9 cm; Wt 72.7 kg
[~2022-08-07 16:17] MED LIST changes: -RISP1TAB48 PO
[2022-08-07] MEDS ORDERED: BUPR-49 PO (16:29)
[2022-08-07 18:57] VITALS: BP 107/72
[2022-08-07 20:06] LABS: COVID AG,FIA SOURCE NASOPHARYNGEAL
[2022-08-07] MEDS ORDERED: HALOPERIDOL 5 MG TABLET PO ONE (20:45)
== END 2022-08-07 22:06 | disposition home or self-care (01) ==
LOC: EMS 16:18
DX: F20.9 Schizophrenia, unspecified (principal); F41.9 Anxiety disorder, unspecified; F32.A Depression, unspecified; F17.210 Nicotine dependence, cigarettes, uncomplicated; F15.90 Other stimulant use, unspecified, uncomplicated; Z88.8 Allergy status to other drugs, medicaments and biological substances; Z20.822 Contact with and (suspected) exposure to COVID-19
CPT/HCPCS: 99284; Z7502

== ENCOUNTER 2022-08-13 17:57 | Emergency (ER) | payer MEDICARE ==
[~2022-08-13] VITALS: Ht 182.9 cm; Wt 83.0 kg
[~2022-08-13 17:57] MED LIST changes: +BUPR-49 PO
[2022-08-13 18:05] VITALS: BP 138/98
== END 2022-08-13 19:50 | disposition home or self-care (01) ==
LOC: EMS 17:58
DX: F20.9 Schizophrenia, unspecified (principal); F41.9 Anxiety disorder, unspecified; F32.A Depression, unspecified; F17.210 Nicotine dependence, cigarettes, uncomplicated; F15.90 Other stimulant use, unspecified, uncomplicated
CPT/HCPCS: 99283; Z7502

== ENCOUNTER 2022-08-14 09:43 | Emergency (ER) | payer MEDICARE ==
[~2022-08-14] VITALS: Ht 182.9 cm; Wt 77.3 kg
[2022-08-14 09:47] VITALS: BP 102/69
[2022-08-14 10:10] LABS: BASOPHILS % (AUTO) 0.3 % (0.0-2.0); EOSINOPHILS % (AUTO) 1.2 % (1.0-6.0); HEMATOCRIT 47.6 % (41-53); HEMOGLOBIN 16.2 g/dL (13.5-17.5); LYMPHOCYTES # (AUTO) 1.4 K/uL (1.0-4.8); MEAN CORPUSCULAR HEMOGLOBIN 29.2 pg (26.0-34.0); MEAN CORPUSCULAR VOLUME 86 fL (80-100); MONOCYTES # (AUTO) 0.5 K/uL (0.1-1.0); MONOCYTES % (AUTO) 7.5 % (2.0-9.0); NEUTROPHILS # (AUTO) 4.8 K/uL (1.8-7.7); PLATELET COUNT (AUTO) 238 K/uL (150-450); RED BLOOD CELL COUNT(AUTO) 5.55 MIL/uL (4.50-5.90); RED CELL DISTRIBUTION WIDTH 14.2 % (11.5-14.5)
[2022-08-14 10:18] LABS: ANION GAP 12 mmol/L (8-16); CALCIUM, TOTAL 9.6 mg/dL (8.8-10.5); CARBON DIOXIDE 25 mmol/L (22-29); CHLORIDE 100 mmol/L (98-107); CREATININE 1.11 mg/dL (0.60-1.30); GLOMERULAR FILTR. RATE CALC > 60 mL/min (>60); GLUCOSE,RANDOM 129 mg/dL (70-110); POTASSIUM 3.7 mmol/L (3.5-5.1); SODIUM SERUM 137 mmol/L (136-145)
[2022-08-14 10:24] LABS: ALANINE AMINOTRANSFERASE 16 U/L (12-78); ALBUMIN 4.6 g/dL (3.4-5.0); ALKALINE PHOSPHATASE 71 U/L (46-116); ASPARTATE AMINOTRANSFERASE 18 U/L (15-37); BILIRUBIN,TOTAL 1.2 mg/dL (0.1-1.0); TOTAL PROTEIN, SERUM 8.2 g/dL (6.4-8.2)
== END 2022-08-14 11:41 | disposition home or self-care (01) ==
LOC: EMS 09:51
DX: F25.9 Schizoaffective disorder, unspecified (principal); R45.851 Suicidal ideations; F32.A Depression, unspecified; F69 Unspecified disorder of adult personality and behavior; F15.10 Other stimulant abuse, uncomplicated; F41.9 Anxiety disorder, unspecified; F19.90 Other psychoactive substance use, unspecified, uncomplicated; F17.210 Nicotine dependence, cigarettes, uncomplicated
CPT/HCPCS: 99291; 80053; 85025; 36415; G0480

== ENCOUNTER 2022-08-21 15:52 | Emergency (ER) | payer MEDICARE | END 2022-08-21 16:34 | disposition home or self-care (01) | LOC: EMS 15:53 | DX: F20.9 Schizophrenia, unspecified (principal); F41.9 Anxiety disorder, unspecified; F32.A Depression, unspecified; F17.210 Nicotine dependence, cigarettes, uncomplicated; F15.90 Other stimulant use, unspecified, uncomplicated | CPT/HCPCS: 99281; Z7502 ==

== ENCOUNTER 2022-08-28 18:14 | Emergency (ER) | payer MEDICARE ==
[~2022-08-28] VITALS: Ht 193 cm; Wt 74.1 kg
[2022-08-28] MEDS ORDERED: HALOPERIDOL 5 MG TABLET PO PRN (21:15)
[2022-08-28] MEDS ORDERED: ZOLPIDEM TARTRATE 10 MG TABLET PO PRN (21:15)
[2022-08-28] MEDS ORDERED: LORazepam 2 MG TABLET PO PRN (21:15)
[2022-08-28] MEDS ORDERED: DiphenhydrAMINE HCL 50 MG/ML VIAL IM ONE (22:45)
[2022-08-28] MEDS ORDERED: HALOPERIDOL LACTATE 5 MG/ML VIAL IM ONE (22:45)
[2022-08-28] MEDS ORDERED: LORazepam 2 MG/ML VIAL IM ONE (22:45)
[2022-08-29 00:25] LABS: COVID AG,FIA SOURCE NASOPHARYNGEAL
[2022-08-29 01:14] LABS: BASOPHILS % (AUTO) 0.6 % (0.0-2.0); EOSINOPHILS % (AUTO) 2.8 % (1.0-6.0); HEMATOCRIT 44.6 % (41-53); HEMOGLOBIN 15.3 g/dL (13.5-17.5); LYMPHOCYTES # (AUTO) 2.2 K/uL (1.0-4.8); LYMPHOCYTES % (AUTO) 30.4 % (22.0-44.0); MEAN CORPUSCULAR HGB CONC 34.3 G/dL (31.0-37.0); MEAN CORPUSCULAR VOLUME 85 fL (80-100); MONOCYTES # (AUTO) 0.6 K/uL (0.1-1.0); MONOCYTES % (AUTO) 8.5 % (2.0-9.0); NEUTROPHILS # (AUTO) 4.2 K/uL (1.8-7.7); NEUTROPHILS % (AUTO) 57.7 % (40.0-70.0); PLATELET COUNT (AUTO) 249 K/uL (150-450); RED BLOOD CELL COUNT(AUTO) 5.27 MIL/uL (4.50-5.90); RED CELL DISTRIBUTION WIDTH 13.8 % (11.5-14.5)
[2022-08-29 01:21] LABS: ANION GAP 9 mmol/L (8-16); CALCIUM, TOTAL 9.1 mg/dL (8.8-10.5); CARBON DIOXIDE 28 mmol/L (22-29); CHLORIDE 104 mmol/L (98-107); CREATININE 0.93 mg/dL (0.60-1.30); GLOMERULAR FILTR. RATE CALC > 60 mL/min (>60); GLUCOSE,RANDOM 104 mg/dL (70-110); SODIUM SERUM 141 mmol/L (136-145)
[2022-08-29 01:29] LABS: ALANINE AMINOTRANSFERASE 13 U/L (12-78); ALBUMIN 3.8 g/dL (3.4-5.0); ALKALINE PHOSPHATASE 74 U/L (46-116); ASPARTATE AMINOTRANSFERASE 17 U/L (15-37); BILIRUBIN,TOTAL 0.8 mg/dL (0.1-1.0); TOTAL PROTEIN, SERUM 7.1 g/dL (6.4-8.2)
[2022-08-29 12:25] LABS: APPEARANCE,URINE CLEAR (CLEAR); BILIRUBIN,URINE NEGATIVE (NEGATIVE); GLUCOSE, URINE (UA) NEGATIVE (NEGATIVE); KETONES,URINE NEGATIVE (NEGATIVE); LEUKOCYTE ESTERASE ,URINE NEGATIVE (NEGATIVE); NITRATE,URINE NEGATIVE (NEGATIVE); OCCULT BLOOD,URINE NEGATIVE (NEGATIVE); PROTEIN,URINE 30-70 mg/dL (NEGATIVE); SPECIFIC GRAVITIY, URINE 1.028 (1.003-1.030)
[2022-08-29 12:32] LABS: AMPHET/METH SCREEN,URINE POSITIVE (NEGATIVE); BARBITURATE SCREEN, URINE NEGATIVE (NEGATIVE); BENZODIAZEPINES SCREEN,URINE NEGATIVE (NEGATIVE); CANNABINOID SCREEN,URINE NEGATIVE (NEGATIVE); COCAINE SCREEN,URINE NEGATIVE (NEGATIVE); METHADONE SCREEN, URINE NEGATIVE (NEGATIVE); OPIATE SCREEN,URINE NEGATIVE (NEGATIVE); PHENCYCLIDINE SCREEN,URINE NEGATIVE (NEGATIVE)
[2022-08-30 06:15] VITALS: BP 105/71
[2022-08-30] MEDS ORDERED: BUPR-344 PO (10:55)
== END 2022-08-30 11:23 | disposition home or self-care (01) ==
LOC: EMS 18:14
DX: F20.9 Schizophrenia, unspecified (principal); F41.9 Anxiety disorder, unspecified; F32.A Depression, unspecified; F17.210 Nicotine dependence, cigarettes, uncomplicated; F15.90 Other stimulant use, unspecified, uncomplicated; Z20.822 Contact with and (suspected) exposure to COVID-19
CPT/HCPCS: 99285; 87426; 80053; 81003; 85025; 36415; 96372; 80307; G0480; J1200; J2060